=== PATIENT | female | born 1955 | race Caucasian/White ===

== ENCOUNTER 2017-09-19 12:58 | Emergency (ER) | payer BC ==
[2017-09-19 13:45] VITALS: BP 184/85
--- NOTE | 2017-09-19 14:23 | UC ---
Dental HPI - HPI Summary HPI Summary: Patient is an otherwise healthy 62-year-old female presenting to the with complaint of swelling to just below the nose along the gumline. She states she has had this in the past and has developed into an abscess. She was unable to get in to see her dentist this morning. She states the area is irritated, swollen and red. She is able to open and close her jaw okay, no drainage from the area. Denies any fevers, sweats, chills. - History of Current Complaint Chief Complaint: UCDentalProblem Stated Complaint: DENTAL PAIN Time Seen by Provider: 09/19/17 13:59 Hx Obtained From: Patient ?: No Onset/Duration: Sudden Onset Severity: Mild Pain Intensity: 0 Pain Scale Used: 0-10 Numeric - Allergies/Home Medications Allergies/Adverse Reactions: Allergies Allergy/AdvReac Type Severity Reaction Status Date / Time No Known Allergies Allergy Verified 09/19/17 13:45 PMH/Surg Hx/FS Hx/Imm Hx Previously Healthy: Yes - Surgical History Surgical History: Yes Surgery Procedure, Year, and Place: see above mastectomy and reconstruction surgeries. TUBES IN EARS. TONSILS - Family History Known Family History: Positive: None - Social History Occupation: Employed Full-time Lives: With Family Alcohol Use: Daily Substance Use Type: None Smoking Status (MU): Former Smoker Amount Used/How Often: 1 CIG/DAY Review of Systems Constitutional: Negative Skin: Negative ENT: Dental Pain Respiratory: Negative Motor: Negative Neurovascular: Negative Musculoskeletal: Negative Is Patient Immunocompromised?: No All Other Systems Reviewed And Are Negative: Yes Physical Exam Triage Information Reviewed: Yes Appearance: Well-Appearing, Well-Nourished Vital Signs: Initial Vital Signs Temp 98.8 F 09/19/17 13:42 Pulse 91 09/19/17 13:42 Resp 18 09/19/17 13:42 BP 184/85 09/19/17 13:42 Pulse Ox 98 09/19/17 13:42 Vital Signs Reviewed: Yes Eye Exam: Normal Dental: Positive: Abscess @ - upper dental gumline between two front teeth Respiratory Exam: Normal Respiratory: Positive: Chest non-tender, Lungs clear Cardiovascular Exam: Normal Musculoskeletal Exam: Normal Musculoskeletal: Positive: Strength Intact Neurological Exam: Normal Skin Exam: Normal Dental Complaint Course/Dx - Course Course Of Treatment: During the course treatment, the patient is evaluated for small amount of swelling just inferior to the nose along the gumline which is approximately 0.5 cm in length. This appears to be first sign of a dental abscess/infection likely secondary to her acute sinusitis infection she recently had which she did not take antibiotics for the time. She is given Keflex 4 times daily 5 days. She will follow-up with her dentist. - Differential Dx/Diagnosis Provider Diagnoses: Dental Pain Discharge - Sign-Out/Discharge Documenting (check all that apply): Patient Departure - Discharge Plan Condition: Stable Disposition: HOME Prescriptions: Cephalexin CAP* [Keflex CAP*] 500 mg PO QID #20 cap MDD 4 Referrals: No Primary Care Phys,NOPCP [Primary Care Provider] - Additional Instructions: Please follow up with your dentist Keflex four times daily x 5 days ibuprofen 600mg three times daily - Billing Disposition and Condition Condition: STABLE Disposition: Home Attestation Statement User Type: Provider - I was available for consult. This patient was seen by the [facility]. The patient was not presented to, seen by, or examined by me. -Octavio
== END 2017-09-19 14:14 | disposition home or self-care (01) ==
LOC: UCEAST 12:58
DX: K08.89 Other specified disorders of teeth and supporting structures (principal); F17.210 Nicotine dependence, cigarettes, uncomplicated
CPT/HCPCS: 99212; G0463